=== PATIENT | male | born 1960 | race Caucasian/White ===

== ENCOUNTER 2021-08-04 06:20 | Day surgery (SDC) | payer BC, OTHER ==
[2021-08-02 13:03] VITALS: BMI 23.7
[~2021-08-04 06:20] MED LIST: BUPIVACAINE HCL/PF 0.25% (2.5MG/ML) 10 ML VIAL IJ ONE
[2021-08-04] MEDS ORDERED: BUPIVACAINE HCL/PF 0.25% (2.5MG/ML) 10 ML VIAL ONE (07:30)
[2021-08-04] MEDS ORDERED: MIDAZOLAM HCL 2 MG/2 ML SINGLE DOSE VIAL ONE (07:34)
[2021-08-04] MEDS ORDERED: SUCCINYLCHOLINE CHLORIDE 200 MG/10 ML SYRINGE ONE (07:34)
[2021-08-04] MEDS ORDERED: PROPOFOL 20 ML ONE ×2 (07:34)
[2021-08-04] MEDS ORDERED: LIDOCAINE HCL 2% JELLY (5 ML/TUBE) ONE (07:35)
[2021-08-04] MEDS ORDERED: LIDOCAINE HCL/PF 2% SDV 5ML VIAL ONE (07:35)
[2021-08-04] MEDS ORDERED: GLYCOPYRROLATE 0.2 MG/1 ML VIAL ONE (08:47)
[2021-08-04] MEDS ORDERED: ceFAZolin SODIUM 1 GM VIAL ONE (08:51)
[2021-08-04] MEDS ORDERED: BUPIVACAINE HCL/PF 0.25% (2.5MG/ML) 10 ML VIAL IJ ONE (09:25)
[2021-08-04] MEDS ORDERED: oxyCODONE HCL 5 MG TABLET PO PRN ×2 (09:38)
[2021-08-04] MEDS ORDERED: ONDANSETRON 4 MG/2 ML VIAL IVPUSH PRN (09:38)
[2021-08-04] MEDS ORDERED: ACETAMINOPHEN 325 MG TABLET (FP) PO PRN (09:38)
[2021-08-04] MEDS ORDERED: PROMETHAZINE HCL 25 MG/1 ML VIAL IVPUSH PRN (09:38)
[2021-08-04] MEDS ORDERED: FENTANYL CITRATE/PF 50 MCG/ML VIAL ONE ×2 (09:54→10:51)
[2021-08-04] MEDS ORDERED: oxyCODONE HCL 5 MG TABLET PO ONE (11:40)
[2021-08-04] MEDS ORDERED: oxyCODONE HCL 5 MG TABLET ONE (11:40)
[2021-08-04 11:55] VITALS: PULSE 78; TEMP 97.9
[2021-08-04 12:16] VITALS: BP 122/70
== END 2021-08-04 12:15 | disposition home or self-care (01) ==
LOC: FASU 06:20
PROVIDERS: ATTEND Orthopaedic Surgery Hand Surgery
PROC: 0RBU0ZZ Excision of Right Metacarpophalangeal Joint, Open Approach (ICD-10-PCS; 2021-08-04)
PROC: 0RBU0ZZ Excision of Right Metacarpophalangeal Joint, Open Approach (ICD-10-PCS; 2021-08-04)
PROC: 0LB70ZZ Excision of Right Hand Tendon, Open Approach (ICD-10-PCS; principal; 2021-08-04 08:20)
DX: M65.841 Other synovitis and tenosynovitis, right hand (principal); M79.89 Other specified soft tissue disorders
CPT/HCPCS: 87070; 87075; 87102; 87116; 87205; 87206; 87210; 88304-TC; 88312-TC; 94760